=== PATIENT | male | born 1975 | race Caucasian/White ===

== ENCOUNTER 2017-08-03 19:16 | Emergency (ER) | payer BC ==
[~2017-08-03] VITALS: Ht 193 cm; Wt 95.3 kg
--- NOTE | 2017-08-03 19:42 | Emergency Room Report ---
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 Earlier this morning had a fairly severe onset of headache Denies any chest pain denies any focal weakness He had some mild nausea with this Denies any neck pain or photophobia Pain is 8 out of 10 diffuse Denies any trauma Allergies: Coded Allergies: No Known Allergies (Unverified , 08/03/17) Patient History Past Medical History: see triage record Pertinent Family History: none Reviewed Nursing Documentation: PMH: Agreed; PSxH: Agreed Nursing Documentation-PMH Past Medical History: Deferred Hx Cancer: Yes Review of Systems All Other Systems: negative except mentioned in HPI Physical Exam Vital Signs Date Time Temp Pulse Resp B/P (MAP) Pulse Ox O2 Delivery O2 Flow Rate FiO2 08/03/17 19:24 98.2 94 16 103/64 99 Room Air 98.2 Sp02 EP Interpretation: reviewed, normal General Appearance: mild distress - In acute pain Head: normocephalic, atraumatic Eyes: bilateral eye PERRL, bilateral eye EOMI ENT: normal ENT inspection Neck: normal inspection Respiratory: normal inspection, chest non-tender Cardiovascular #1: normal inspection, normal peripheral pulses, regular rate, rhythm, no edema Gastrointestinal: non tender, soft Musculoskeletal: normal inspection, back normal Neurologic: alert, oriented x3, responsive Skin: normal color, no rash Lymphatic: no adenopathy Medical Decision Making Diagnostic Impression: Primary Impression: Headache ER Course Multiple differentials including but not limited to intracranial hemorrhage infectious pathology, electrolyte abnormalities considered Patient had blood work initiated CT imaging CT imaging of the brain was negative Unfortunately patient had history of previous chemotherapy and reports that his veins have been difficult over the past years And unfortunately here we were unable to obtain blood work or IV access The next step would be to have Central line placement And he does not want that at this time Consideration for differentials such as meningitis or lower patient does not have any neck rigidity no fevers Also feels that he is likely dehydrated at this time did not want any further medications in the ER And will attempt continued outpatient conservative trial,, CT/MRI/US Diagnostic Results CT/MRI/US Diagnostic Results : Impression CT head no acute disease Last Vital Signs Date Time Temp Pulse Resp B/P (MAP) Pulse Ox O2 Delivery O2 Flow Rate FiO2 08/03/17 19:24 98.2 94 16 103/64 99 Room Air 98.2 Status: improved Disposition: HOME, SELF-CARE Condition: Improved Additional Instructions: Patient is provided with the discharge instructions notified to follow up with primary doctor in the next 2-3 days otherwise return to the er with any worsening symptoms. Please note that this report is being documented using DRAGON technology. This can lead to erroneous entry secondary to incorrect interpretation by the dictating instrument. Denise Bean DO August 03, 2017 19:42
[2017-08-03] MEDS ORDERED: Ketorolac 30mg Inj IV ONE (19:45)
[2017-08-03] MEDS ORDERED: DiphenhydrAMINE 50mg/ml Inj IVP ONE (19:45)
[2017-08-03] MEDS ORDERED: Promethazine HCl 25 MG in NS 55 ML IVPB ONE (19:45)
[2017-08-03 20:54] VITALS: BP 107/64
== END 2017-08-03 21:45 | disposition home or self-care (01) ==
LOC: EMR 21:43
DX: R51 Headache (principal)
CPT/HCPCS: 70450; 96374; 96375; 99284

== ENCOUNTER → 2017-09-21 | Outpatient (CLI) | payer BC ==
--- NOTE | 2017-09-21 18:00 | Diagnostic Imaging Report ---
Indication: Abdominal pain Technique: Sandra-scale and duplex images of the upper abdomen were obtained. Grayscale duplex images of the kidneys, retroperitoneum, and bladder Comparison: none Findings: Gallbladder is incompletely distended, contains sludge. No stones, wall thickening, nor pericholecystic fluid Sonographic Sneed's sign is negative. Common bile duct measures 7 mm in diameter. No intrahepatic biliary ductal dilatation. Liver demonstrates normal echogenicity, no focal abnormality. Portal vein and hepatic veins are patent. Pancreas is incompletely visualized due to overlying bowel gas, visualized portions are unremarkable. Spleen is unremarkable. Left kidney measures 11.2 cm in length. Right kidney measures 10.2 cm length. Both kidneys demonstrate normal echogenicity. There is no hydronephrosis. No focal abnormality . Non-aneurysmal abdominal aorta . Bladder is normal, prevoid volume 209 mL. No postvoid measurement obtained Impression: Gallbladder sludge. Negative for gallstones Mildly ectatic common bile duct. Downstream obstruction not excludable. Correlate with liver function tests
== END | disposition home or self-care (01) ==
LOC: ULS 14:34
DX: R10.11 Right upper quadrant pain (principal)
CPT/HCPCS: 76700

== ENCOUNTER → 2020-04-06 | Outpatient (CLI) | payer BC ==
--- NOTE | 2020-04-06 18:17 | Diagnostic Imaging Report ---
Indication: Left leg pain and edema Technique: Grayscale and duplex images of the left lower extremity veins Comparison: None Findings: On the left, grayscale and duplex images demonstrate occlusive thrombus within the common femoral and down stream vein, extending into the iliac vein. A separate focus of thrombus is seen in the upstream femoral vein. Impression: Positive for left common femoral vein acute deep venous thrombosis, extending into the iliac vein Positive for separate focus of femoral venous thrombosis Patient is a physician, is aware of the findings
== END | disposition home or self-care (01) ==
LOC: RAD 10:46
DX: M79.605 Pain in left leg (principal); R60.0 Localized edema; I82.412 Acute embolism and thrombosis of left femoral vein
CPT/HCPCS: 93971